=== PATIENT | female | born 1965 | race Hispanic/Latino ===

== ENCOUNTER 2020-07-14 18:34 | Inpatient (IN) | payer OTHER, MEDICARE ==
[~2020-07-14] VITALS: Ht 157.5 cm; Wt 90.7 kg
[2020-07-14] MEDS ORDERED: TRAM50TA4 PO (20:12)
[2020-07-14] MEDS ORDERED: SIMV-43 PO (20:12)
[2020-07-14] MEDS ORDERED: LISI5TAB21 PO (20:12)
[2020-07-14] MEDS ORDERED: ISOS20TA85 PO (20:12)
[2020-07-14] MEDS ORDERED: OMEP-420 PO (20:12)
[2020-07-14] MEDS ORDERED: ASPI-1197 PO (20:12)
[2020-07-14] MEDS ORDERED: PREG50CA63 PO (20:12)
[2020-07-14] MEDS ORDERED: NITR0.4T50 SL (20:12)
[2020-07-14] MEDS ORDERED: METO-408 PO (20:12)
[2020-07-14] MEDS ORDERED: TRAMADOL HCL 50 MG TABLET PO PRN (23:30)
[2020-07-14] MEDS ORDERED: ONDANSETRON 4MG INJ IV PRN (23:30)
[2020-07-14] MEDS ORDERED: ACETAMINOPHEN 325 MG TAB PO PRN ×2 (23:30)
[2020-07-14] MEDS ORDERED: LACTULOSE 20 GM/30 ML UDCUP PO PRN (23:30)
[2020-07-14] MEDS ORDERED: NITROGLYCERIN 1GM OINT 1 INCH/1GM TD ONE (23:51)
[2020-07-14 23:52] LABS: BASOPHILS % (AUTO) 0.6 % (0.0-5.0); EOSINOPHILS % (AUTO) 8.6 % (0.0-8.0); HEMATOCRIT 37.4 % (36-48); LYMPHOCYTES % (AUTO) 33.3 % (21.0-51.0); MEAN CORPUSCULAR HEMOGLOBIN 27.9 pg (27.0-33.0); MEAN CORPUSCULAR HGB CONC 33.4 g/dL (32.0-36.0); MEAN CORPUSCULAR VOLUME 83.5 fL (79-99); MONOCYTES % (AUTO) 7.3 % (3.0-13.0); PLATELET COUNT (AUTO) 237 K/uL (130-400); RED BLOOD CELL COUNT(AUTO) 4.48 MIL/uL (4.00-5.50); RED CELL DISTRIBUTION WIDTH 13.7 % (11.0-15.5); WHITE BLOOD COUNT (AUTO) 12.9 K/uL (4.8-10.8)
[2020-07-15 00:06] LABS: INR 0.96 (0.85-1.15); PROTHROMBIN TIME 10.5 SEC (9.6-11.6)
[2020-07-15 00:07] LABS: PARTIAL THROMBOPLASTIN TIME 25.7 SEC (26.3-35.5)
[2020-07-15 00:13] LABS: ALANINE AMINOTRANSFERASE 40 U/L (12-78); ALBUMIN 3.3 g/dL (3.5-5.0); ASPARTATE AMINOTRANSFERASE 28 U/L (10-37); BILIRUBIN,TOTAL 0.4 mg/dL (0.2-1.0); CARBON DIOXIDE 32 mmol/L (21-32); CHLORIDE 99 mmol/L (101-111); CREATINE KINASE, TOTAL 58 U/L (21-232); CREATININE 0.9 mg/dL (0.5-1.5); GLOMERULAR FILTR. RATE CALC 70 mL/min (>60); GLUCOSE,RANDOM 373 mg/dL (70-105); MYOGLOBIN 33 ng/mL (10-92); POTASSIUM 4.3 mmol/L (3.5-5.1); SODIUM SERUM 135 mmol/L (136-145); TOTAL PROTEIN, SERUM 7.5 g/dL (6.0-8.3); TROPONIN I < 0.04 ng/mL (0.00-0.06); UREA NITROGEN, BLOOD 21 mg/dL (7-18)
[2020-07-15 01:09] LABS: ERYTHROCYTE SEDIMENTATION RATE 24 MM/HR (0-30)
[2020-07-15 05:44] LABS: CHOLESTEROL 199 mg/dL (<200); CREATINE KINASE, TOTAL 58 U/L (21-232); HDL CHOLESTEROL 45 mg/dL (35-85); LDL DIRECT 128 mg/dL (0-99); MYOGLOBIN 31 ng/mL (10-92); TRIGLYCERIDES 123 mg/dL (30-200); TROPONIN I < 0.04 ng/mL (0.00-0.06)
[2020-07-15] MEDS ORDERED: INSULIN HUMULIN R 100 UNIT/ML 3ML SQ SCH (07:30)
[2020-07-15] MEDS ORDERED: ASPIRIN 81MG CHEW TAB ONE (08:19)
[2020-07-15] MEDS ORDERED: LISINOPRIL 5 MG TABLET ONE ×2 (08:20→21:41)
[2020-07-15] MEDS ORDERED: ENOXAPARIN SODIUM 40 MG/0.4 ML SYRINGE SQ ONE (08:20)
[2020-07-15] MEDS ORDERED: FAMOTIDINE 20MG TAB ONE (08:20)
[2020-07-15] MEDS ORDERED: METOPROLOL SUCCINATE 50 MG TAB.SR.24H PO ONE (08:21)
[2020-07-15] MEDS ORDERED: PANTOPRAZOLE 40 MG TAB DR ONE (08:21)
[2020-07-15] MEDS ORDERED: PREGABALIN 25 MG CAP ONE (08:22)
[2020-07-15] MEDS ORDERED: INSULIN HUMULIN R 100 UNIT/ML 3ML ONE ×4 (08:34→21:38)
[2020-07-15] MEDS: ENOXAPARIN SODIUM 40 MG/0.4 ML SYRINGE SQ SCH (09:00)
[2020-07-15] MEDS ORDERED: ISOSORBIDE MONO 30MG SR TAB PO SCH (09:00)
[2020-07-15] MEDS: PANTOPRAZOLE 40 MG TAB DR PO SCH (09:00)
[2020-07-15] MEDS: LISINOPRIL 10 MG TABLET PO SCH (09:00)
[2020-07-15] MEDS: METOPROLOL SUCCINATE 50 MG TAB.SR.24H PO SCH (09:00)
[2020-07-15] MEDS: ASPIRIN 325 MG TABLET PO SCH (09:00)
[2020-07-15] MEDS ORDERED: REGADENOSON 0.4 MG/5 ML PF SYG IVP SCH (12:00)
[2020-07-15] MEDS ORDERED: NITROGLYCERIN 1GM OINT 1 INCH/1GM TD ONE (12:43)
[2020-07-15] MEDS ORDERED: TRAMADOL HCL 50 MG TABLET ONE (13:27)
[2020-07-15 18:38] LABS: CREATINE KINASE, TOTAL 47 U/L (21-232); MYOGLOBIN 38 ng/mL (10-92); TROPONIN I < 0.04 ng/mL (0.00-0.06)
[2020-07-15] MEDS ORDERED: INSULIN GLARGINE 100 UNITS/ML 10 ML VIAL SQ SCH (21:00)
[2020-07-15] MEDS ORDERED: ATORVASTATIN 40 MG TABLET PO SCH (21:00)
[2020-07-15] MEDS ORDERED: SIMVASTATIN 20 MG TABLET PO SCH (21:00)
[2020-07-15] MEDS: FAMOTIDINE 20MG TAB PO SCH (21:00)
[2020-07-15] MEDS ORDERED: DEXTROSE 50%-WATER 50 ML DISP.SYRIN IV PRN (21:45)
[2020-07-15] MEDS ORDERED: GLUCAGON 1MG KIT 1 MG ML IM PRN (21:45)
[2020-07-15 23:12] VITALS: BP 114/52
[2020-07-15] MEDS: NITROGLYCERIN 1GM OINT 1 INCH/1GM TD SCH (23:25)
[2020-07-16 04:00] VITALS: BP 116/53
[2020-07-16] MEDS ORDERED: INSULIN R PO SS1 SQ SCH (07:30)
[2020-07-16] MEDS ORDERED: INSULIN HUMULIN R 100 UNIT/ML 3ML SQ SCH (07:30)
[2020-07-16] MEDS: NITROGLYCERIN 1GM OINT 1 INCH/1GM TD SCH (07:34)
[2020-07-16 08:00] VITALS: BP 111/51
[2020-07-16] MEDS: LISINOPRIL 10 MG TABLET PO SCH (09:59)
[2020-07-16] MEDS: ASPIRIN 325 MG TABLET PO SCH (09:59)
[2020-07-16] MEDS: PANTOPRAZOLE 40 MG TAB DR PO SCH (09:59)
[2020-07-16] MEDS: FAMOTIDINE 20MG TAB PO SCH (10:00)
[2020-07-16] MEDS: METOPROLOL SUCCINATE 50 MG TAB.SR.24H PO SCH (10:00)
[2020-07-16] MEDS: ENOXAPARIN SODIUM 40 MG/0.4 ML SYRINGE SQ SCH (10:02)
[2020-07-16] MEDS ORDERED: ATOR40TA69 PO (10:28)
== END 2020-07-16 13:30 | disposition home or self-care (01) | DRG 311 ==
LOC: EDH 18:34 → EDHIP 23:20 → 4BH 07-15 22:37
PROVIDERS: ADMIT Internal Medicine; ATTEND Internal Medicine
DX: I20.0 Unstable angina (principal); E78.5 Hyperlipidemia, unspecified; I10 Essential (primary) hypertension; E11.42 Type 2 diabetes mellitus with diabetic polyneuropathy; Z86.16 Personal history of COVID-19; E66.01 Morbid (severe) obesity due to excess calories; G89.29 Other chronic pain; K21.9 Gastro-esophageal reflux disease without esophagitis; M54.5 Low back pain; Z79.82 Long term (current) use of aspirin; Z79.899 Other long term (current) drug therapy; Z87.891 Personal history of nicotine dependence; Z90.49 Acquired absence of other specified parts of digestive tract; Z98.51 Tubal ligation status; Z68.36 Body mass index [BMI] 36.0-36.9, adult
CPT/HCPCS: 36415; 71045; 78452; 80053; 80061; 82550; 82948; 83036; 83874; 83880; 84443; 84484; 85025; 85378; 85610; 85651; 85730; 93005; 93017; 93306; 93356; 96374; A9500; G0378; J1650; J1815; J2785